=== PATIENT | male | born 1980 | race Caucasian/White ===

== ENCOUNTER 2021-04-12 00:06 | Inpatient (IN) | payer BC, SELFPAY ==
[2021-04-12] VITALS (12 sets, daily range): BP systolic 121–135; BP diastolic 55–80; PULSE 64–106; RESP 18–24; TEMP 36.6–39.3; O2SAT 93–96; BMI 27.9
--- NOTE | 2021-04-12 01:21 | PCM.HP.STD ---
HPI - General General Date of Admission: 04/12/21 Date of Service: 04/12/21 Chief Complaint: COVID, worsening symptoms, hypoxia. 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 Patient is unsure of how he contracted Covid. Patient is unvaccinated against COVID-19. Patient upon arrival to [facility] [place] had required increase of oxygen to 4 L. Work-up at the outside ED included: VS: Initial T 37.9, BP 123/81, RR 24, 93% on RA, with ambulation 85% on RA-->90% on 2L CBC: WBC 4.2, Hgb 14.2, Plts 132 without marked shift CMP: Na 137, K 3.9, BUN/Cr 15/1.03, glucose 127, hepatic profile AST/ALT 47/52 D-dimer: 421 (500 is cutoff) Trop: < 0.02 x 2 LA: 1.0 CXR: Cardiomegaly and BL infiltrates COVID type testing: Positive PCR Medications administered: Decadron 6 mg IV x 1, 1L NS. [facility] no medical history Home Medications NK 04/12/21 [History Last Taken Unknown] Allergy/AdvReac Type Severity Reaction Status Date / Time Penicillins Allergy Hives Verified 04/12/21 01:55 no significant family history (Patient denies any marked maternal or paternal family history including heart disease, diabetes, cancer.) Surgical History (Updated 04/12/21 @ 02:[address] Catie Kraft MD) Status post glaucoma surgery [place] teeth extracted Social History (Updated 04/12/21 @ 02:[address] Catie Kraft MD) household members: none Smoking Status: Never smoker alcohol intake: never substance use type: does not use ROS ROS Narrative Admission Review of Systems: CONSTITUTIONAL: No weight loss, + fever, chills, weakness or fatigue. HEENT: + Headache, congestion, alteration to taste/smell. Eyes: No visual loss, blurred vision, double vision or yellow sclerae. Ears, Nose, Throat: No hearing loss, sneezing. SKIN: No rash or itching, lesions, wounds. CARDIOVASCULAR: No chest pain, chest pressure or chest discomfort, palpitations, edema, orthopnea, syncopal events. RESPIRATORY: + shortness of breath, cough, No marked sputum, wheezing, hemoptysis. GASTROINTESTINAL: + anorexia, nausea, diarrhea, No vomiting, abdominal pain, melena, BRBPR. GENITOURINARY: No dysuria, frequency, urgency or retention. NEUROLOGICAL: + headache, No dizziness, syncope, paralysis, ataxia, numbness or tingling in the extremities, focal weakness, change in bowel or bladder control, seizure. MUSCULOSKELETAL: + muscle, back pain, joint pain or stiffness. HEMATOLOGIC: No anemia, bleeding or bruising. LYMPHATICS: No enlarged nodes. No history of splenectomy. PSYCHIATRIC: No history of depression or anxiety. ENDOCRINOLOGIC: No reports of sweating, cold or heat intolerance. No polyuria or polydipsia. ALLERGIES: No history of asthma, hives, eczema or rhinitis. Physical Exam Narrative Physical Examination: General: Awake, alert, oriented x 3 and cooperative, seated upright in the MS bed, fatigued and ill-appearing, mild respiratory rate. Skin: Normal color, normal turgor, no icterus, no cyanosis. HEENT: AT/NC, EOMI, PERRLA, moderately dry MM, no carotid bruits or JVD noted. Lungs: Diffusely diminished, greater bases, increased respiratory rate, no rales, ronchi or wheezing. Heart: Regular rate with regular rhythm; no gallop, rub audible. Abdomen: Soft, obese, no obvious TTP, NS, distant hyperactive bowel sounds, no HSM. Extremities: No cyanosis, clubbing, or edema. Neurological: Patient awake, alert, oriented as noted, cognitive function intact; pupils equally reactive to light and accommodation, cranial nerves II-XII grossly normal, moving all 4 extremities, no focal deficits, strength moderately to severely global decrease secondary to acute presentation. Psychiatric: Affect appears fatigued, ill-appearing, no acute evidence of depressive or anxiety feelings. 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 1. Acute Hypoxic secondary to Acute Bilateral Pneumonia secondary to Acute Viral Syndrome, COVID-19: Will admit to the [place] telemetry, maintain on COVID precautions, will maintain on oxygen with wean as tolerated to room air, PRN albuterol, HOB, IS parameters w/ pending sputum cultures, respiratory viral panel and urine antigens, will obtain procalcitonin, CRP, CPK, Ferritin, LDH, trop and BNP, continue supportive care including q 2 hour turning including prone given no prone bed availability and judicious hydration, closely monitor for worsening status for ARDS and multiorgan failure, will initiate and continue IV decadron x 10 doses, given presentation will also initiate IV remdesivir but defer to discretion of Infectious disease. If respiratory status worsens and patient requires airvo or BIPAP transition will initiate barcitinib regimen additionally with ID involvement. 2. Mildly elevated LFTs: Likely secondary to acute presentation #1, will treat as noted above and repeat CMP in AM. 3. Obesity: Weight loss and lifestyle changes encouraged. 4. DVT prophylaxis: SCDs, Lovenox. 5. CODE status: Patient does not have healthcare power of managing attorney nor living will. Given patient unvaccinated status with COVID-19 pneumonia, discussed CODE status at length including difference between FULL code, DNR-CCA and DNR-CC status. Following discussions about the differences in these status, requested Full Code status, amenable to also airvo and BIPAP. Advanced Care Planning Face to Face Time: 16 minutes. Charges/Coding Procedures Hospitalists Procedures: 37621 Advncd Care Plan 30 Min
--- NOTE | 2021-04-12 02:03 | PCS.PANDOC ---
PANDEMIC DOCUMENTATION INITIATED: Date: 01/04/2021 Time: 190
[2021-04-12] MEDS: 0.9% Normal Saline 1,000 ML 100 ML IV (03:13)
[2021-04-12] MEDS: Acetaminophen 325 MG Tablet 650 MG PO ×3 (03:14→20:49)
[2021-04-12] MEDS: BENZOCAINE/MENTHOL 1 LOZENGE MUCOUS MEM (03:14)
[2021-04-12] MEDS: Loperamide 2 MG Capsule PO (03:14)
[2021-04-12] MEDS: guaiFENesin 10 ML UDC (200MG/10ML) 20 ML PO (03:14)
[2021-04-12 07:06] LABS: Absolute Lymphocyte Count 0.65 X10^3/uL (0.83-4.51); Hemoglobin 13.2 g/dL (13.0-16.5); Lymphocyte # 0.65 X10^3/ul (0.83-4.51); Mean Corp Hgb Conc 32.2 g/dL (32-36); Mean Corpuscular Hgb 28.7 pg (27.0-32.0); Mean Corpuscular Volume 89.1 fL (80-94); Mean Platelet Vol. 11.2 fl (6.2-12.0); Monocyte# 0.17 X10^3/uL; NRBC Flagged by Analyzer 0 % (0-5); Neutrophil % 70.6 % (47-70); Platelet Count 125 K/mm3 (150-450); RBC Distribution Width CV 14.1 % (11.6-14.6); RBC Distribution Width SD 46.1 fl (35.1-43.9); White Blood Count 2.8 K/mm3 (4.4-11.0)
[2021-04-12 07:37] LABS: Ferritin 1155 ng/mL (26-388); LDH 387 U/L (87-241)
[2021-04-12 07:39] LABS: ALB/GLOB Ratio 0.7 RATIO (0.9-2.4); AST(SGOT) 46 U/L (15-37); Alanine Aminotransfer ALT/SGPT 57 U/L (16-61); Albumin, Serum 2.9 g/dL (3.2-5.0); Alkaline Phosphatase 46 U/L (45-117); Anion Gap 4 (5-15); BUN 18 mg/dL (7-18); BUN/Creat Ratio 16.7 RATIO (10-20); Calcium,Total 8.5 mg/dL (8.5-10.1); Chloride 105 mmol/L (98-107); Creatinine, Serum 1.08 mg/dL (0.70-1.30); EST Glomerular Filtration Rate 79 mL/min (>60); Est Glom Filt Rate - Afr Amer 96 mL/min (>60); Estimated Creatinine Clearance 102.54 ml/min; Globulin 4.1 g/dL (2.2-4.2); Glucose 151 mg/dL (74-106); Potassium 4.5 mmol/L (3.5-5.1); Sodium Level 137 mmol/L (136-145)
[2021-04-12 09:05] LABS: BNP,B-Type NATRIURETIC PEPTIDE 4.3 pg/mL (0-100)
[2021-04-12] MEDS: Enoxaparin 30 MG/0.3 ML Syringe SC ×2 (09:13→20:29)
[2021-04-12 10:04] LABS: Procalcitonin 0.26 ng/mL (0.00-0.09)
--- NOTE | 2021-04-12 11:02 | CASEMGMT ---
TONY SHORT Assessment: Face to Face with pt for initial transition planning/care coordination assessment. RN DEJA introduced self and role at [facility], pt voices understanding and consents to assessment. Pt is A/O x4 and answers all questions appropriately at this time. Pt lying in bed with O2 on in no distress. Care providers, pharmacy, and demographics verified/updated. Admitting Dx: COVID PNA, hypoxia PCP:Pt denies having a PCP. Provided pt with a local healthcare directory list. Specialists:Pt denies having any specialists. [facility]erred [facility]acy: [facility] Insurance: [employer] Prescription Benefit: yes LW/HPOA: Pt denies having a LW/DPOA and denies need for info regarding AD. LNOK: Pipe Yeager, father Living Arrangements: Pt lives alone in a two story house with 3 steps to enter with a rail. Pt reports being I in ADL's and denies concerns at home. Transportation: Pt drives self and denies concerns with transportation. DME/HHC/SNF: Pt has a cane at home but does not use, denies hx of HHC or SNF stays. Pt reports he was tested for COVID at [facility]. Provided list of local in network DME companies, pt denies preference should he need O2 at dc. Pt reports his dad could provide him with groceries and supplies while quarantined. Pt states he is but does not live with his and did not elaborate. Pt states no concerns with going home at time of dc. Pt states no further concerns/needs. CM to follow. Advised pt to ask CM if any further question/concerns/needs arise, voices understanding. Pt Goal: Home Plan: Home
--- NOTE | 2021-04-12 11:21 | PCM.PN.BLA ---
Assessment & Plan Assessment/Plan (1) Pneumonia due to COVID-19 virus: (2) Hypoxia: PLAN: 1. Acute hypoxic respiratory failure secondary to COVID-19 pneumonia ?Continue with remdesivir and Decadron ?We'll decrease his IV fluids to 75 cc an hour secondary to his diarrhea. However will need to very cautious in the setting of Covid, IV fluids ?Maintaining oxygen saturations on 3 L so far, however he does get worse and necessitates air Vo or BiPAP will consult ID for baricitinib ?Outside hospital D-dimer was 421 however they're cut off for a positive D-dimer is over 500 therefore no CTA of the chest is necessary at this time DVT: Lovenox
[2021-04-12] MEDS: guaiFENesin 600 MG Tablet 400 MG PO (20:24)
[2021-04-12] MEDS: MELATONIN 3 MG TABLET PO (20:29)
[2021-04-13] VITALS (15 sets, daily range): BP systolic 107–141; BP diastolic 58–88; PULSE 70–89; RESP 16–18; TEMP 36.6–37.6; O2SAT 85–98
[2021-04-13] MEDS: guaiFENesin 600 MG Tablet 400 MG PO ×2 (00:12→05:56)
[2021-04-13] MEDS: Acetaminophen 325 MG Tablet 650 MG PO ×2 (02:43→23:17)
[2021-04-13 06:14] LABS: Absolute Lymphocyte Count 1.17 X10^3/uL (0.83-4.51); Absolute Neutrophil Count 3.9 X10^3/uL (2.0-7.7); Basophil# 0.01 X10^3/uL; Basophil% 0.2 % (0-1); Hematocrit 38.6 % (40-54); Hemoglobin 12.3 g/dL (13.0-16.5); Lymphocyte # 1.17 X10^3/ul (0.83-4.51); Lymphocyte % 20.9 % (19-41); Mean Corp Hgb Conc 31.9 g/dL (32-36); Mean Corpuscular Hgb 28.1 pg (27.0-32.0); Mean Corpuscular Volume 88.3 fL (80-94); Mean Platelet Vol. 11.3 fl (6.2-12.0); Monocyte% 8.9 % (0-10); NRBC Flagged by Analyzer 0 % (0-5); Neutrophil # 3.91 X10^3/uL (2.7-7.7); Neutrophil % 69.8 % (47-70); Platelet Count 156 K/mm3 (150-450); RBC Distribution Width CV 14.1 % (11.6-14.6); Red Blood Count 4.37 M/mm3 (4.6-6.2); White Blood Count 5.6 K/mm3 (4.4-11.0)
[2021-04-13 06:59] LABS: ALB/GLOB Ratio 0.7 RATIO (0.9-2.4); AST(SGOT) 52 U/L (15-37); Alanine Aminotransfer ALT/SGPT 50 U/L (16-61); Albumin, Serum 2.7 g/dL (3.2-5.0); Alkaline Phosphatase 44 U/L (45-117); Anion Gap 7 (5-15); BUN 21 mg/dL (7-18); BUN/Creat Ratio 23.3 RATIO (10-20); Calcium,Total 8.4 mg/dL (8.5-10.1); Chloride 105 mmol/L (98-107); EST Glomerular Filtration Rate 98 mL/min (>60); Est Glom Filt Rate - Afr Amer 118 mL/min (>60); Estimated Creatinine Clearance 123.05 ml/min; Globulin 4.1 g/dL (2.2-4.2); Glucose 128 mg/dL (74-106); Protein, Total 6.8 g/dL (6.4-8.2); Sodium Level 136 mmol/L (136-145)
[2021-04-13] MEDS: dexAMETHasone 4 MG/ML Vial 6 MG IV (09:05)
[2021-04-13] MEDS: Enoxaparin 30 MG/0.3 ML Syringe SC ×2 (09:05→23:17)
--- NOTE | 2021-04-13 09:43 | NURSING ---
Instructed patient to get oob and move as much as possible today. Also suggested that he use the IS 10x/hr and cough and deep breathe. He is also aware that if he is in bed he needs to be laying in prone position.
--- NOTE | 2021-04-13 12:56 | PCM.PN.HOSP ---
Subjective Subjective Maintaining his oxygen saturations at rest on 2 to 3 L however with ambulation he was up 6 or 7 L. Objective Data Objective Data Vital Signs: Vital Signs Temp Pulse Resp BP Pulse Ox 98.8 F 89 18 115/61 95 04/13/21 09:01 04/13/21 11:18 04/13/21 09:01 04/13/21 09:01 04/13/21 10:45 Oxygen Flow Rate (L/min) [ 6 AMBULATING with Oxygen #3] Oxygen Flow Rate (L/min) [ 4 AMBULATING with Oxygen #2] Oxygen Flow Rate (L/min) [ 2 AMBULATING with Oxygen #1] Oxygen Flow Rate (L/min) 3 Oxygen Delivery Method Nasal Cannula Weight: 218 lb 0.595 oz Body Mass Index (BMI) 27.9 Intake & Output: Intake and Output for Last 24 Hours 04/12/21 04/13/21 04/14/21 03:59 03:59 03:59 Intake Total 2100.00 / 2100.00 250 / 250 Output Total 1440 / 1440 Balance 660.00 / 660.00 250 / 250 Lab / Micro Data Result Diagrams: 04/13/21 05:44 04/13/21 05:44 Labs: Laboratory Results - last 24 hr 04/13/21 05:44: WBC 5.6, RBC 4.37 L, Hgb 12.3 L, Hct 38.6 L, MCV 88.3, MCH 28.1, MCHC 31.9 L, RDW Std Deviation 46.0 H, RDW Coeff of Bryan 14.1, Plt Count 156, MPV 11.3, Immature Gran % (Auto) 0.200, Neut % (Auto) 69.8, Lymph % (Auto) 20.9, [place] % (Auto) 8.9, Eos % (Auto) 0.0, Baso % (Auto) 0.2, Absolute Neuts (auto) 3.9, Absolute Lymphs (auto) 1.17, Nucleated RBC % 0 04/13/21 05:44: Sodium 136, Potassium 4.0, Chloride 105, Carbon Dioxide 24.0, Anion Gap 7, BUN 21 H, Creatinine 0.90, Estim Creat Clear Calc 123.05, Est GFR (MDRD) Af Amer 118, Est GFR (MDRD) Non-Af 98, BUN/Creatinine Ratio 23.3 H, Glucose 128 H, Calcium 8.4 L, Total Bilirubin 0.40, AST 52 H, ALT 50, Alkaline Phosphatase 44 L, Total Protein 6.8, Albumin 2.7 L, Globulin 4.1, Albumin/Globulin Ratio 0.7 L Micro: Microbiology 04/12/21 13:15 Urine, Clean Catch Legionella Antigen - Final 04/12/21 13:15 Urine, Clean Catch Streptococcus pneumoniae Antigen (M - Final 04/12/21 01:30 Mucosa - Nasopharyngeal Respiratory Panel (PCR) - Final Physical Exam Const alert, oriented x3 and no apparent distress General Appearance: cooperative HEENT normocephalic and moist oral mucous membranes Eyes PERRL, EOMs intact bilaterally and conjunctivae normal Neck supple and no JVD Resp normal respiratory effort, no retractions and no use of accessory muscles Auscultation: diminished lung sounds; Negative for crackles, rales, rhonchi or wheezes Cardio regular rate, regular rhythm, S1 normal heart sound, S2 normal heart sound and no murmurs GI soft to palpation, non-tender and non-distended; Negative for hepatosplenomegaly Extremity no clubbing, cyanosis or edema Skin no rashes or lesions noted Neuro no focal motor deficits and no sensory deficits noted Psych affect normal Appearance: appropriate Assessment & Plan Assessment/Plan (1) Pneumonia due to COVID-19 virus: (2) Hypoxia: PLAN: 1. Acute hypoxic respiratory failure secondary to COVID-19 pneumonia ?Continue with remdesivir and Decadron ?We will discontinue his IV fluids secondary to the resolution of his diarrhea. We will continue to evaluate for the need of Lasix. ?Maintaining oxygen saturations on 3 L so far, however he does require 6 to 7 L with ambulation therefore he is not ready to go home yet ?Outside hospital D-dimer was 421 however they're cut off for a positive D-dimer is over 500 therefore no CTA of the chest is necessary at this time DVT: Lovenox Charges/Coding Visit Charges Inpatient E&M: 00466 Subs Hosp L2
[2021-04-13] MEDS: guaiFENesin 10 ML UDC (200MG/10ML) 20 ML PO ×3 (13:16→23:17)
[2021-04-13] MEDS: 0.9% Saline Lock 10 ML Syringe IV (23:16)
[2021-04-13] MEDS: MELATONIN 3 MG TABLET PO (23:18)
[2021-04-13] MEDS: BENZOCAINE/MENTHOL 1 LOZENGE MUCOUS MEM (23:32)
[2021-04-14] VITALS (8 sets, daily range): BP systolic 115–130; BP diastolic 72–80; PULSE 61–77; RESP 16–18; TEMP 36.7–37.1; O2SAT 88–94
[2021-04-14] MEDS: guaiFENesin 10 ML UDC (200MG/10ML) 20 ML PO (06:15)
[2021-04-14 07:24] LABS: Absolute Neutrophil Count 4.1 X10^3/uL (2.0-7.7); Basophil# 0.01 X10^3/uL; Basophil% 0.2 % (0-1); Hematocrit 38.5 % (40-54); Hemoglobin 12.6 g/dL (13.0-16.5); Lymphocyte % 21.6 % (19-41); Mean Corp Hgb Conc 32.7 g/dL (32-36); Mean Corpuscular Hgb 28.9 pg (27.0-32.0); Mean Corpuscular Volume 88.3 fL (80-94); Mean Platelet Vol. 10.9 fl (6.2-12.0); Monocyte# 0.64 X10^3/uL; Monocyte% 10.6 % (0-10); NRBC Flagged by Analyzer 0 % (0-5); Neutrophil # 4.05 X10^3/uL (2.7-7.7); Neutrophil % 67.3 % (47-70); Platelet Count 177 K/mm3 (150-450); RBC Distribution Width SD 45.5 fl (35.1-43.9); Red Blood Count 4.36 M/mm3 (4.6-6.2)
[2021-04-14 07:47] LABS: ALB/GLOB Ratio 0.6 RATIO (0.9-2.4); AST(SGOT) 44 U/L (15-37); Alanine Aminotransfer ALT/SGPT 50 U/L (16-61); Albumin, Serum 2.7 g/dL (3.2-5.0); Alkaline Phosphatase 43 U/L (45-117); Anion Gap 9 (5-15); BUN 23 mg/dL (7-18); BUN/Creat Ratio 27.2 RATIO (10-20); Calcium,Total 8.6 mg/dL (8.5-10.1); Chloride 106 mmol/L (98-107); Creatinine, Serum 0.85 mg/dL (0.70-1.30); EST Glomerular Filtration Rate 105 mL/min (>60); Est Glom Filt Rate - Afr Amer 127 mL/min (>60); Estimated Creatinine Clearance 130.28 ml/min; Globulin 4.4 g/dL (2.2-4.2); Glucose 120 mg/dL (74-106); Potassium 3.8 mmol/L (3.5-5.1); Protein, Total 7.1 g/dL (6.4-8.2); Sodium Level 139 mmol/L (136-145)
[2021-04-14] MEDS: Enoxaparin 30 MG/0.3 ML Syringe SC (10:23)
[2021-04-14] MEDS: dexAMETHasone 4 MG/ML Vial 6 MG IV (10:24)
[2021-04-14] MEDS: Loperamide 2 MG Capsule PO (10:24)
[2021-04-14] MEDS: 0.9% Saline Lock 10 ML Syringe IV (10:24)
--- NOTE | 2021-04-14 12:28 | PCM.DC ---
Discharge Instructions Diet Discharge Diet: No restrictions Activity Discharge Activity: Return to Normal Activity Dressing / Incision Call your doctor if you observe: Fever of 101 or Higher, Shortness of breath, Dizziness, Fainting spells, Swelling in the ankles, Chest pain and Increased palpitations (irregular heartbeat) Follow Up Care Test Results: Test results from this visit will be discussed in further detail at your follow-up appointment, if applicable. Discharge Plan Admission Admit Date/Time: 04/12/21 00:06 Attending Provider: Roddy Gonzalez Primary Care Provider: Irina Physician,Natali Primary Instructions Additional Instructions / Restrictions: Remain in quarantine until 04/26/2021. Would also recommend receiving any of the Covid vaccines in May Discharge Orders/Prescriptions Prescriptions: New dexamethasone 2 mg tablet 6 mg PO DAILY 8 Days Qty: 24 RF: 0 Referrals / Follow Up: Care Physician,No Primary [Primary Care Provider] - Disposition Disposition (needs filled in before D/C Order can be placed): Home, Self Care
--- NOTE | 2021-04-14 12:31 | DS.PCM_ITS ---
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 in [place] on which was positive at that time with progressively worsening fever, chills, fatigue, malaise, cough, dyspnea, body aches, nausea, profuse intractable diarrhea, alteration sense of taste/smell prompting eventual ED evaluation. Patient is unsure of how he contracted Covid. Patient is unvaccinated against COVID-19. Patient upon arrival to [facility] had required increase of oxygen to 4 L. Hospital Course: 1. Acute hypoxic respiratory failure secondary to COVID-19 pneumonia ?Continue with remdesivir and Decadron ?We will discontinue his IV fluids secondary to the resolution of his diarrhea. We will continue to evaluate for the need of Lasix. ?Maintaining oxygen saturations on 3 L so far, however he does require 6 to 7 L with ambulation therefore he is not ready to go home yet ?Outside hospital D-dimer was 421 however they're cut off for a positive D-dimer is over 500 therefore no CTA of the chest is necessary at this time 04/14/2021: Feels better today, had his ambulatory pulse ox today and he only needed 2 to 3 L with ambulation. His diarrhea has completely resolved and I discussed with him the possibility for discharge today he expressed understanding of the risk and benefits of going home and would like to go home today. He will need to go home on oxygen I have discussed with him that the oxygen he should wear at night is the same oxygen he wears with activity. We will also provide him with 8 more days of Decadron to complete a 10-day course. I discussed with him that he is to remain in quarantine for 20 days since the onset of symptoms and I do recommend that he obtain a Covid vaccine as an outpatient when able. Physical Exam Const alert, oriented x3 and no apparent distress General Appearance: cooperative HEENT normocephalic and moist oral mucous membranes Eyes PERRL, EOMs intact bilaterally and conjunctivae normal Neck supple and no JVD Resp normal respiratory effort, no retractions and no use of accessory muscles Auscultation: diminished lung sounds; Negative for crackles, rales, rhonchi or wheezes Cardio regular rate, regular rhythm, S1 normal heart sound, S2 normal heart sound and no murmurs GI soft to palpation, non-tender and non-distended; Negative for hepatosplenomegaly Extremity no clubbing, cyanosis or edema Skin no rashes or lesions noted Neuro no focal motor deficits and no sensory deficits noted Psych affect normal Appearance: appropriate Weight / BMI Weight Weight: 217 lb 2.485 oz Body Mass Index (BMI) 27.9 ABG / Lab / Microbiology Data Result Diagrams: 04/14/21 07:01 04/14/21 07:01 Laboratory: Laboratory Results - last 24 hr 04/14/21 07:01: WBC 6.0, RBC 4.36 L, Hgb 12.6 L, Hct 38.5 L, MCV 88.3, MCH 28.9, MCHC 32.7, RDW Std Deviation 45.5 H, RDW Coeff of Bryan 14.0, Plt Count 177, MPV 10.9, Immature Gran % (Auto) 0.300, Neut % (Auto) 67.3, Lymph % (Auto) 21.6, [place] % (Auto) 10.6 H, Eos % (Auto) 0.0, Baso % (Auto) 0.2, Absolute Neuts (auto) 4.1, Absolute Lymphs (auto) 1.30, Nucleated RBC % 0 04/14/21 07:01: Sodium 139, Potassium 3.8, Chloride 106, Carbon Dioxide 24.0, Anion Gap 9, BUN 23 H, Creatinine 0.85, Estim Creat Clear Calc 130.28, Est GFR (MDRD) Af Amer 127, Est GFR (MDRD) Non-Af 105, BUN/Creatinine Ratio 27.2 H, Glucose 120 H, Calcium 8.6, Total Bilirubin 0.40, AST 44 H, ALT 50, Alkaline Phosphatase 43 L, Total Protein 7.1, Albumin 2.7 L, Globulin 4.4 H, Albumin/Carly bulin Ratio 0.6 L Microbiology: Microbiology 04/12/21 13:15 Urine, Clean Catch Legionella Antigen - Final 04/12/21 13:15 Urine, Clean Catch Streptococcus pneumoniae Antigen (M - Final 04/12/21 01:30 Mucosa - Nasopharyngeal Respiratory Panel (PCR) - Final D/C Instructions Discharge Diet: No restrictions Call your doctor if you observe: Fever of 101 or Higher, Shortness of breath, Dizziness, Fainting spells, Swelling in the ankles, Chest pain and Increased palpitations (irregular heartbeat) Meaningful Use Info Meaningful Use Diagnoses (Choose all that apply): None applicable Discharge Plan Admission Admit Date/Time: 04/12/21 00:06 Attending Provider: Roddy Gonzalez Primary Care Provider: Care Physician,No Primary Instructions Additional Instructions / Restrictions: Remain in quarantine until 04/26/2021. Would also recommend receiving any of the Covid vaccines in May Discharge Orders/Prescriptions Prescriptions: New dexamethasone 2 mg tablet 6 mg PO DAILY 8 Days Qty: 24 RF: 0 Referrals / Follow Up: Care Physician,No Primary [Primary Care Provider] - Disposition Disposition (needs filled in before D/C Order can be placed): Home, Self Care Charges/Coding Visit Charges Inpatient E&M: 12298 Disch Hosp
--- NOTE | 2021-04-14 12:44 | CASEMGMT ---
Pt qualifies for home O2, [place] [facility] TC to Chanelle she is aware that tank will be taken from stock.
== END 2021-04-14 13:00 | disposition home or self-care (01) | DRG 177 ==
PROVIDERS: Admitting Provider Family Medicine; Visit Provider Family Medicine
DX: U07.1 COVID-19 (principal); J12.82 Pneumonia due to coronavirus disease 2019; J96.01 Acute respiratory failure with hypoxia; E66.9 Obesity, unspecified; Z68.27 Body mass index [BMI] 27.0-27.9, adult
CPT/HCPCS: 36415; 80053; 82728; 83615; 83880; 84145; 85025; 86140; 86850; 86900; 86901; 87449; 87633; 94667; 99251; J7030; J7050; A4216; G0463